=== PATIENT | male | born 1970 | race Caucasian/White ===

== ENCOUNTER 2018-04-07 20:05 | Emergency (ER) | payer OTHER ==
[2018-04-07 20:14] VITALS: BP 115/73; PULSE 80; RESP 20; TEMP 98.2; O2SAT 98
--- NOTE | 2018-04-07 20:51 | C.PDOC ---
History Of Present Illness 47 year old male presents to the ED for evaluation of nasal congestion associated with difficulty breathing through nose and cough which began today. Patient states his congestion improved throughout the day, but he began experiencing difficulty breathing through his nose again while attempting to go to gnostic[employer] tonight. Patient denies fever, chills, significant past medical history, or known drug allergies. Chief Complaint (Nursing): Cough, Cold, Congestion History Per: Patient History/Exam Limitations: no limitations Onset/Duration Of Symptoms: Hrs Current Symptoms Are (Timing): Still Present Associated Symptoms: Cough, Nasal Congestion. denies: Fever, Chills Additional History Per: Patient Past Medical History Reviewed: Historical Data, Nursing Documentation, Vital Signs Vital Signs: Last Vital Signs Temp 98.2 F 04/07/18 20:08 Pulse 80 04/07/18 20:08 Resp 20 04/07/18 20:08 BP 115/73 04/07/18 20:08 Pulse Ox 98 04/07/18 20:08 - Medical History PMH: No Chronic Diseases Surgical History: No Surg Hx Family History: States: Unknown Family Hx - Social History Hx Tobacco Use: No Hx Alcohol Use: No Hx Substance Use: No - Immunization History Hx Tetanus Toxoid Vaccination: No Hx Influenza Vaccination: No Hx Pneumococcal Vaccination: No Review Of Systems Constitutional: Negative for: Fever, Chills, Weakness Eyes: Negative for: Redness, Other (scleral icterus ) ENT: Positive for: Nose Congestion. Negative for: Mouth Swelling, Throat Swelling Cardiovascular: Negative for: Chest Pain Respiratory: Positive for: Cough. Negative for: Shortness of Breath Gastrointestinal: Negative for: Nausea, Vomiting, Diarrhea Genitourinary: Negative for: Dysuria, Hematuria Musculoskeletal: Negative for: Back Pain Skin: Negative for: Rash Neurological: Negative for: Weakness, Numbness, Dizziness Physical Exam - Physical Exam Appears: Well, Non-toxic, No Acute Distress Skin: Normal Color, Warm, No Rash Head: Atraumatic, Normacephalic, Other (no sinus tenderness on percussion ) Eye(s): bilateral: Normal Inspection, PERRL, EOMI Ear(s): Bilateral: Normal (no drainage ) Nose: Discharge (clear, mucous ), Other (severe congestion in right nare, moderate congestion in left nare ) Oral Mucosa: Moist Throat: Normal (no swelling or injection ), No Exudate, Other (airway patent ) Neck: Normal ROM, Supple Chest: Symmetrical Respiratory: No Accessory Muscle Use, Other (normal inspiratory effort ) Gastrointestinal/Abdominal: Soft, No Distention Back: Other (ambulating with steady upright gait ) Extremity: Normal ROM Extremity: Bilateral: Atraumatic Pulses: Left Radial: Normal, Right Radial: Normal Neurological/Psych: Oriented x3, Normal Cranial Nerves (grossly intact ) ED Course And Treatment O2 Sat by Pulse Oximetry: 98 (on RA ) Pulse Ox Interpretation: Normal Medical Decision Making Medical Decision Making: Physical exam findings are indicative of an upper respiratory infection with nasal congestion. Patient will be discharged with prescription for Zyrtec D to relieve symptoms and advised to follow-up with his PMD within 1-2 days for further evaluation. Disposition Counseled Patient/Family Regarding: Diagnosis, Need For Followup, Rx Given - Disposition Disposition: HOME/ ROUTINE Disposition Time: 20:44 Condition: STABLE Prescriptions: Cetirizine HCl/Pseudoephedrine [Zyrtec-D Tablet] 1 each PO DAILY #14 tab.[id number] Instructions: Sinusitis, Adult (DC) Forms: [employer] ([place]), General Discharge Instructions - Clinical Impression Clinical Impression: Upper respiratory infection, Sinusitis - PA / [employer] / Resident Statement MD/DO has reviewed & agrees with the documentation as recorded. - Scribe Statement The provider has reviewed the documentation as recorded by the Scribe (Olive Capone) All medical record entries made by the Scribe were at my direction and personally dictated by me. I have reviewed the chart and agree that the record accurately reflects my personal performance of the history, physical exam, medical decision making, and the department course for this patient. I have also personally directed, reviewed, and agree with the discharge instructions and disposition.
== END 2018-04-07 21:00 | disposition home or self-care (01) ==
LOC: C.ER 20:05
DX: J01.90 Acute sinusitis, unspecified (principal)